=== PATIENT | male | born 1995 | race Hispanic/Latino ===

== ENCOUNTER 2018-06-24 19:17 | Emergency (ER) | payer SELFPAY ==
[~2018-06-24] VITALS: Ht 188 cm; Wt 130.0 kg
[2018-06-24 20:45] LABS: URINE BILIRUBIN - DIPSTICK NEGATIVE (NEGATIVE); URINE BLOOD DIPSTICK NEGATIVE (NEGATIVE); URINE COLOR YELLOW; URINE GLUCOSE - DIPSTICK NEGATIVE (NEGATIVE); URINE KETONE NEGATIVE (NEGATIVE); URINE LEUK ESTERASE NEGATIVE (NEGATIVE); URINE NITRITE - DIPSTICK NEGATIVE (Negative); URINE PROTEIN - DIPSTICK NEGATIVE (NEG-TRACE); URINE SPECIFIC GRAVITY >=1.030
[2018-06-24 20:47] LABS: URINE CLARITY CLEAR
[2018-06-24] MEDS ORDERED: NAPROSYN500 MG PO (23:21)
[2018-06-24 23:32] VITALS: BP 140/74
== END 2018-06-24 23:35 | disposition home or self-care (01) | DRG 730 ==
LOC: ED 19:17
PROVIDERS: Emergency Medicine
DX: N44.2 Benign cyst of testis (principal); N43.3 Hydrocele, unspecified; N50.812 Left testicular pain